=== PATIENT | male | born 1960 | race Hispanic/Latino ===

== ENCOUNTER 2017-08-04 05:45 | Day surgery (SDC) | payer BC ==
[2017-07-13 10:47] VITALS: BMI 33.7
[2017-08-04] MEDS ORDERED: ceFAZolin IV 2 gm in Dextrose 2 GM/50 ML BAG IVPB ONE (07:42)
[2017-08-04] MEDS ORDERED: Lactated Ringer's 1,000 ML IV ONE ×4 (08:25→14:30)
[2017-08-04] MEDS ORDERED: Propofol 10 mg/ml Inj (20 ML) ONE ×2 (08:31→08:37)
[2017-08-04] MEDS ORDERED: Midazolam 2 MG/2 ML VIAL ONE (08:31)
[2017-08-04] MEDS ORDERED: Succinylcholine Chloride 20 mg/ml Syr (5 ml) IV ONE (09:58)
[2017-08-04] MEDS ORDERED: Rocuronium 10 mg/ml (10 ml) ONE (09:58)
[2017-08-04] MEDS ORDERED: HYDROmorphone 0.5 mg/0.5 ml ISec IVP PRN (10:56)
[2017-08-04] MEDS ORDERED: Bupivacaine 0.5% Inj(30mL) ONE (12:21)
--- NOTE | 2017-08-04 14:05 | PCM.ANESB1 ---
Interscalene Block - Brachial Plexus Date of Procedure: 08/04/17 Anesthesiologist: Theo Roberson Pre-Procedure Diagnosis: left shoulder RTC tear Post-Procedure Diagnosis: Left shoulder RTC repair Procedure Performed: Interscalene Block of Brachial Plexus Left - Procedure Interscalene Block of Brachial Plexus: This procedure was explained to the patient that it is for post-operative pain management. Consent was obtained after a thorough discussion with the patient regarding the benefits and possible complications of local anesthetic block of the Brachial Plexus at the Interscalene area. The patient was brought to the recovery Room and standard monitors were applied. Time out was held with the RR nurse to confirm the correct surgery and appropriate block. After applying Oxygen by nasal cannula and administering IV Sedation, the patient's head was gently rotated away from the left_operative shoulder and the anterior scalene groove was carefully palpated. The ultrasound transducer was then applied to the skin in the transverse plane and the brachial plexus was visualized lateral to the carotid artery and in between the anterior and middle scalene muscles. After identification,the anterior lateral portion of the neck was prepped with Betadine solution three times and Lidocaine 1% was injected subcutaneously for topical analgesia. At this point, a # 22 gauge Stimuplex 2 inches insulated needle was inserted into the interscalene groove and directed in a caudal and midline direction. The needle was inserted lateral to the ultrasound transducer in-plane towards the brachial plexus in a [id number] direction. Needle advancement was performed carefully under direct ultrasound visualization. Nerve stimulator was used and twitched of the affected extremity including the hand brachialis muscles, biceps and the deltoid fade was obtained at a current of __0.44___MA. After repeated negative aspiration,___20__cc of__0.5% Bupivacaine was injected _ . Under ultrasound guidance the local anesthetics were observed surrounding the roots of the brachial plexus. The needle was removed intact and sterile dressing was applied. The patient had stable vital signs, was conscious and in no apparent distress. The patient tolerated the interscalene block of the bracheal plexus well with stable vital signs.
[2017-08-04 16:10] VITALS: TEMP 97
[2017-08-04 16:18] VITALS: BP 134/80; PULSE 90; RESP 18; O2SAT 98
--- NOTE | 2017-08-05 17:11 | PCM.SURG1 ---
Surgeon's Initial Post Op Note - Surgeon's Notes Surgeon: Liliane Bernabe MD Conductor Yard: Amina Rooney PA-C Type of Anesthesia: General Endo, Block Regional Pre-Operative Diagnosis: L shoulder. #1 SLAP tear. #2 bicepst partial tear LH tendon. #3 SA impingement. #4 SA bursitis. #5 RTC tendonopathy Operative Findings: L shoulder. #1 SLAP tear. #2 Bankart tear and anterior instability. #3 biceps partial tear LH tendon. #4 SA impingement. #5 SA bursitis. #6 RTC tendonopathy. #7 glenoid osteochondral defect Post-Operative Diagnosis: L shoulder. #1 SLAP tear. #2 Bankart tear and anterior instability. #3 biceps partial tear LH tendon. #4 SA impingement. # 5 SA bursitis. #6 RTC tendonopathy. #7 glenoid osteochondral defect Operation Performed: L shoulder #1 Arthroscopic anterior stabilization/ Bankart repair. #2 Arthroscopic SLAP repair. #3 Arthroscopic SA decompression w/ acromioplasty. #4 Arthroscopic extensive debridement. #5 Arthroscopic microfracture glenoid chondeal defect. #6 open biceps LH tenodesis. #7 Arthroscopic PRP injection Specimen/Specimens Removed: specimen= none. complications= none. implants= Arthrex 2.9 biocomposite push lock anchors x5. 7mm biocomposite tenodesis screw x1 Estimated Blood Loss: EBL {In ML}: 30 Blood Products Given: N/A Drains Used: No Drains Post-Op Condition: Good Date of Surgery/Procedure: 08/04/17 Time of Surgery/Procedure: 16:00
--- NOTE | 2017-08-24 06:54 | OP ---
PROCEDURE DATE: 08/04/2017 PREOPERATIVE DIAGNOSES: Left shoulder: 1. Superior labrum anterior and posterior tear. 2. Biceps long head tendon partial tear and instability. 3. Subacromial impingement. 4. Subacromial bursitis. 5. Rotator cuff tendinopathy/partial tear. POSTOPERATIVE DIAGNOSES: Left shoulder: 1. Superior labrum anterior and posterior tear. 2. Bankart labral tear and anterior instability. 3. Biceps long head tendon partial tear and instability. 4 Subacromial impingement. 5. Subacromial bursitis. 6. Rotator cuff tendinopathy/partial tear. 7. Glenoid isolated full thickness chondral defect/osteochondral defect. PROCEDURES: Left shoulder: 1. Open biceps long head tendon tenodesis. 2. Arthroscopic extensive debridement. 3. Arthroscopic superior labrum anterior and posterior tear repair. 4. Arthroscopic anterior stabilization/Bankart repair. 5. Arthroscopic microfracture glenoid chondral defect. 6. Arthroscopic subacromial decompression with acromioplasty. 7. Arthroscopic platelet-rich plasma injection. SURGEON: Liliane Bernabe MD TURBINE BLADE ASSEMBLER: Elena Rooney PA-C. JUSTIFICATION FOR TURBINE BLADE ASSEMBLER: Elena Rooney is a certified physician warehouse assistant whose skilled surgical service was an absolute necessity for successful completion of the procedure, as he provided skilled surgical assistance with positioning of extremity, positioning of the patient, management of surgical field, retraction of the neurovascular structures, facilitating SLAP repair, and passage of suture and anchors, facilitating Bankart/anterior stabilization repair, and passage of suture and fixation of anchors, handling arthroscopic equipment, preparation of surgical exposure and fixation of biceps tenodesis, and placement of biceps tenodesis hardware and docking site, wound closure, fitting and placement of shoulder immobilizer sling. Elena Rooney was present for the entire case, was an absolute necessity for successful completion of the procedure. TYPE OF ANESTHESIA: General endotracheal anesthesia with a postop regional nerve block placed by Anesthesia staff in PACU. SPECIMEN: None. COMPLICATIONS: None. IMPLANTS: Arthrex 2.9 BioComposite PushLock anchors x5 with labral tape suture, 7 mm BioComposite biceps tenodesis screw x1. ESTIMATED BLOOD LOSS: 30 mL. DRAINS: None. COMPLICATIONS: None. DISPOSITION: The patient was extubated and transferred to PACU in stable condition and tolerated the procedure well. INDICATIONS FOR SURGERY: The patient is a [id number], right hand dominant, with past medical history significant for hypertension and COPD, who presents to the office under my care for the firs time on 05/18/2017 with left shoulder pain and dysfunction since 05/05/2017. The patient stated on 05/05/2017, he tripped while trying to step over a gate and landed on his left shoulder on the kitchen floor. He has developed immediate 10/10 pain localized to the left shoulder, more prominent at its anterior aspect that was difficult with overhead activity, woke him up at night, made it difficult to have any meaningful function with his left arm. 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 His primary care physician Dr. Ayden Rob referred him for an MRI, which was done at [facility] on 05/08/2017, read as; 1. Complex tear of the superior labrum in association with 3.7 cm paralabral cyst which extends into the subscapular and spinal glenoid notches. Of note, there is no asymmetric muscle atrophy identified. 2. Mild to moderate rotator cuff tendinosis with small partial thickness, articular surface tear involving less than 50% of the distal supraspinatus tendon width and mild subacromial/subdeltoid bursitis. This MRI was done as a regular MRI without arthrogram. Initial presentation in the office, which started conservative treatment in the form of cortisone mixture injection to the subacromial space and bicipital groove which resulted in immediate near complete resolution of pain locally at the left shoulder. On his followup visit, he reported that this only lasted one week and that his pain did return as well as his dysfunction. While the injection was working, he reported that he had almost complete episcopal of function of his shoulder. I referred him for an MR arthrogram to evaluate the rotator cuff and the labrum in more detail, which was done at [facility] on 06/15/2017, which was read as; 1. Complex tear of the superior labrum extending anteriorly. 2. Partial intrasubstance tear of the biceps tendon, long head. 3. Definitive arthropathy of the common clavicular joint contributing to impingement of the supraspinatus tendon with no full thickness tear or retraction seen. On my review of the MRI, I agree that there is a biceps tendon partial tear and that the SLAP tear potentially extended inferiorly into the Bankart region. He underwent a second round of cortisone mixture injections to the subacromial space in the biceps tendon groove, which did provide him with near complete resolution of the pain, again that was temporary. He was compliant with physical therapy and anti-inflammatory medication and reported that he did not have any overall improvement, but that the injections did provide him with enough temporary resolution of pain and episcopal of function that he was convinced that it was a local shoulder problem. After failing conservative treatment for a few months and confirming that there was a real mechanical problem in his shoulder on the MR arthrogram, he was indicated for arthroscopic and open surgery to the left shoulder. He was indicated for left shoulder: 1. Open biceps tenodesis. 2. Arthroscopic SLAP repair, arthroscopic extensive debridement, arthroscopic subacromial decompression with acromioplasty and evaluation of rotator cuff and possible arthroscopic rotator cuff repair, and all related indicated arthroscopic procedures. I spend a long time with the patient reviewing the risks, benefits and alternatives of the procedure with the risks including but not limited to infection, neurovascular damage, failure of repair, failure of surgery, development of stiffness, development of chronic pain and disability, development of blood clots including DVT and PE, anesthesia reactions, cardiopulmonary collapse, inability to return to preinjury level of activity, and occupational requirements, loss of occupation, need for further surgery, cardiopulmonary complications including . After answering all of his questions, he stated that he understood the risks and wished to proceed with surgery. He watched surgical animation videos and diagnosis animation videos and stated that he understood the surgery as well as the procedures to be done. He was referred to his primary care physician Dr. Ayden Rob for a pre-admission testing and medical clearance and the procedure was scheduled at [facility] on 08/04/2017. PROCEDURE IN DETAIL: The patient was identified in the preoperative holding area, and the left shoulder was marked for surgery. Once again as described above, the risks, benefits, alternatives of the procedure were discussed at length with the patient, and informed consent was obtained. After a brief discussion with the Anesthesia staff, perioperative IV antibiotics in the form of 2 g Ancef were administered, and the patient was taken to the operating room on a stretcher. An initial time-out was done with the surgeon, anesthesia staff, OR staff, all in agreement with the patient, procedure being done, and extremity being operated on. General anesthesia was administered without difficulty or complication. The patient was then transferred to the beach-chair positioner in the supine position and all bony prominences and superficial neurovascular structures well padded. With the help of anesthesia staff, monitoring his hemodynamic status, he was brought half way up in the beach-chair positioner after he was secured in good head and neck alignment. It was confirmed that he was hemodynamically stable and at that point in time, he was brought to the full upright position in a beach-chair positioner. Once it was confirmed, he was hemodynamically stable and tolerating that position, an examination under anesthesia was then carried out. Examination under anesthesia, left shoulder was full range of motion compared to contralateral shoulder, 2+ instability anteriorly, positive biceps instability with external rotation and abduction, skin intact, no swelling, no warmth, no erythema. Continuation of the procedure: The left upper extremity was then prepped and draped in standard sterile fashion. A formal time-out was done with the surgeon, anesthesia staff, OR staff, all in agreement with the patient, procedure being done, and extremity being operated on. Posterior portal was created with stab incision through skin down to subcutaneous tissue, while maintaining good hemostasis down to the level of capsule. Blunt arthroscopic trocar and cannula were inserted into the glenohumeral joint and insufflation with arthroscopic fluid was begun. Arthroscopic camera was inserted and with the use of spinal needle localization at the rotator interval, a secondary portal/anterior portal was created with stab incision through skin down the subcutaneous tissue down to the level of the capsule. An accessory cannula was inserted and the shoulder joint was copiously irrigated for better visualization and removal of debris. With the use of an arthroscopic probe, the diagnostic arthroscopy was then carried out. DIAGNOSTIC ARTHROSCOPY: Attention was first turned towards the glenohumeral joint, where immediately seen at the central aspect of the glenoid was a full thickness cartilage zone of injury measuring approximately 3 mm x 6 mm at the central aspect of the glenoid. The remainder of the glenoid did have some grade 1 chondromalacia, but no full thickness defects and no overall global wear. Attention then turned towards the labrum and we began to notice that there was a positive drive-through sign and indeed the humeral head was subluxed anterior inferior. At that point in time, traction and stress was placed on the humeral head and without difficulty, dislocated inferiorly, showing that there was significant anterior instability and a Bankart injury with detachment of the anterior inferior labrum from the glenoid. Attention was then turned towards the biceps tendon and indeed there was significant partial tearing and fibrillation and inflamed tissue throughout its intraarticular course up until the biceps anchor. The SLAP tear was evident and did have a significant detached region starting all the way down at the level of the Bankart anterior-inferior zone completely detached from the glenoid, all the way up to the 12 o'clock position at the bicipital anchor. Attention was then turned towards the axillary pouch. There was no evidence of any loose bodies or inflamed tissues. Attention then turned towards the rotator cuff, where there was no full thickness rotator cuff tear seen, but there was significant synovitis throughout the anterior aspect of the shoulder joints and there was a small partial thickness tear seen at the supraspinatus on the articular side that did not appear to be greater than 50% as seen on the MRI. The subscapularis did have some partial tearing and fibrillation with no full thickness component seen and the partial tearing was indeed less than 50% of the thickness of the tendon. With the use of arthroscopic shaver and radiofrequency ablation, an extensive synovectomy was carried out, removing all the inflamed tissue and extensive debridement was carried out, while maintaining good hemostasis. With the use of curved lanadverde scissor a biceps tenotomy was then carried out releasing the biceps tendon from its bicipital anchor point at the 12 o' clock position on the labrum for a future biceps tenodesis surgery. The subscapularis partial tear and rotator cuff partial tear was also debrided with the use of arthroscopic shaver and radiofrequency ablation. All the hypertrophic synovial tissue was also debrided. Attention was then turned towards the labrum. There was a complex nature to the tear as well as the full thickness detachment of the labrum starting at the Bankart region extending to the SLAP region from 6 o'clock to 12 o'clock. With the use of radiofrequency ablation, arthroscopic shaver, a debridement of the unstable fragments of the labrum was carried out. An arthroscopic elevator was used to elevate the tissue and free up the labrum that was scarred in anteriorly. With the Arthrex suture passer, a labral tape was passed around as close to the 6 o'clock position of the labrum as possible and an anchor point was created for the PushLock anchor and we began our anterior stabilization with the suture passer and the labral tape encompassing a healthy amount of anterior capsule and anterior inferior labrum, advancing it to the 6 o'clock position on the glenoid face with a PushLock now with anchor plates with good fixation achieved. We worked our way up starting at the 6 o'clock position to the 7 o'clock position to the 8.5 o'clock position, passing the labral tapes and placing PushLock anchors with good anterior stability achieved. As we continued our progress, it was visible that the humeral head was becoming more centered and less subluxed on to the glenoid. Once we had placed our three anchors, the anterior stabilization done arthroscopically was evident and successfully completed. We then continued into the SLAP region and continued passing the labral tapes up to the 11 o'clock and 12 o'clock position with a total of 5 labral tapes and BioComposite PushLock anchors from Arthrex placed are providing good stable and successful SLAP repair and anterior stabilization. With the use of arthroscopic shaver and radiofrequency ablation, the posterior labrum was debrided and there was no full thickness component identified or detachment from the glenoid. The area of full thickness cartilage loss was now our focus of treatment and with the use of curettes and arthroscopic radiofrequency ablation, and arthroscopic shaver, a chondroplasty establishing a smooth rim of stable cartilage was carried out. Once again this lesion measured approximately 3 mm x 6 mm. With the use of microfracture, all three microfracture holes were placed with good bloody return visualized immediately. Once the microfracture was completed to satisfaction, attention was then turned towards the subacromial space. All arthroscopic fluid and debris were evacuated from the glenohumeral joint. The arthroscopic camera was then inserted into the subacromial space, and with the use of radiofrequency ablation and arthroscopic shaver, a subacromial decompression/bursectomy was carried out, while maintaining good hemostasis. The zone of impingement was identified. The rotator cuff was carefully evaluated and indeed there was no area of full thickness rotator cuff tear. It was all partial tearing and tendinopathy. With the use of radiofrequency ablation and arthroscopic shaver, the rotator cuff partial tearing was debrided and the overlying bursa was completely resected in the form of a bursectomy. The zone of impingement was identified and with the use of an arthroscopic helene, and radiofrequency ablation and arthroscopic shaver, a subacromial decompression and acromioplasty was carried out removing the zone of impingement and freeing up the underlying rotator cuff with good hemostasis achieved. Once this was carried out with satisfaction, all arthroscopic fluid and debris were evacuated from the subacromial space and the camera was inserted into the glenohumeral joint once again. With the help of anesthesia staff, 5 mL of PRP were obtained through a peripheral stick and spun, and the Arthrex . A 5 mL of PRP was injected intraarticularly and in the subacromial space to help with the healing of the Bankart and SLAP repair as well as the partial rotator cuff tear. Once all the intraarticular and subacromial treatments was carried out successfully and to satisfaction, final images were taken, the PRP was injected and all arthroscopic portals were reapproximated with 2-0 Vicryl suture for the deep tissue, followed by 3-0 Monocryl suture for skin. Attention was then turned towards the open biceps tenodesis portion of the case. Along the axilla just inferior to the palpated pectoralis major insertion on the humerus, a small 3-cm incision was made through skin down to the subcutaneous tissue and maintained good hemostasis down to the level of the deltopectoral fascia. The deltopectoral fascia was sharply incised and with digit palpation, the long head biceps tendon that was cut and released intraarticularly was identified and brought into the surgical field. The partially torn and diseased tendinopathy tissue was resected and tensioning was carried out to establish the proper length for the biceps tendon. Once this was established with the elbow in flexion, optimal docking site for the biceps tenodesis was identified and overlying soft tissue was debrided exposing the underlying proximal humeral shaft. Subpectoralis biceps tenodesis was then carried out. Guidewire was advanced through the near cortex and far cortex, 7-mm cannulated drill was then passed over the near cortex only. All excess bone and debris were then copiously irrigated and removed from the field. The proximal biceps tendon tissue had been prepared with whipstitch fashion for the proximal 3 cm of the tendon. One end of the FiberWire suture was then passed through the 7 mm BioComposite biceps tenodesis screw from Arthrex and the screw and the tendon were docked successfully at the tenodesis hole of the proximal humeral shaft with good fixation and stability achieved. With the use of a free needle one end of the suture was then passed through the biceps tendon itself and with a knot pusher, both ends of the suture were tied down to each other as secondary backup fixation for the tenodesis. Once this was completed with satisfaction, good hemostasis was achieved and the wound was copiously irrigated. Deep tissue was reapproximated with #1 Vicryl suture, followed by subcutaneous tissue reapproximated with 2-0 Vicryl suture , followed by skin reapproximated with 3-0 Monocryl. Sterile dressings were applied, and the left arm/upper extremity was placed in the shoulder immobilizer sling provided by my office and fitted for the patient at the end of the surgery. The patient was then brought into the supine position and transferred carefully and successfully to his stretcher where he was extubated from anesthesia. He was then transferred to the PACU in stable condition and tolerated the procedure well. DISPOSITION: The patient will be discharged home after he has recovered from anesthesia. He is instructed to keep the dressings clean, dry, and intact and keep his arm in the shoulder immobilizer sling at all times. He will be strict nonweightbearing to the left upper extremity. He is given a prescription for Percocet for pain control. He will contact me directly if any questions or concerns. He will follow up in my office at [facility] within one week and already has a postoperative appointment set up. Liliane Bernabe MD
== END 2017-08-04 17:09 | disposition home or self-care (01) ==
LOC: C.SDS 05:45
PROVIDERS: ATTEND Student in an Organized Health Care Education/Training Program
DX: S46.012A Strain of muscle(s) and tendon(s) of the rotator cuff of left shoulder, initial encounter (principal); S46.812A Strain of other muscles, fascia and tendons at shoulder and upper arm level, left arm, initial encounter; M75.22 Bicipital tendinitis, left shoulder; M75.50 Bursitis of unspecified shoulder; I10 Essential (primary) hypertension; J44.9 Chronic obstructive pulmonary disease, unspecified; S43.432A Superior glenoid labrum lesion of left shoulder, initial encounter; X58.XXXA Exposure to other specified factors, initial encounter; M25.312 Other instability, left shoulder; M75.42 Impingement syndrome of left shoulder
CPT/HCPCS: 23430; 29806; 29807; 29826; 29999; C1713; J0171; J0690; J1885; J2001; J2250; J2405; J2704; J2765; J3010; J7120